=== PATIENT | female | born 1955 | race Caucasian/White ===

== ENCOUNTER 2017-06-09 22:43 | Inpatient (IN) | payer OTHER, SELFPAY | END 2017-06-12 11:30 | disposition home or self-care (01) | DRG 195 | PROVIDERS: Admitting Provider Emergency Medicine; Emergency Provider Emergency Medicine; Family Provider Emergency Medicine; Visit Provider Emergency Medicine | DX: J18.9 Pneumonia, unspecified organism (principal) | CPT/HCPCS: 36415; 71010; 80048; 80053; 81001; 83605; 85025; 87040; 87275; 87276; 96365; 96366; 96367; 99285; J0456 ==

== ENCOUNTER → 2018-06-15 12:41 | Outpatient (CLI) | payer OTHER, SELFPAY ==
--- NOTE | 2018-06-15 12:45 | XR_ITS ---
XR ribs BI min 4V w CXR1V HISTORY: Rib pain following injury ITS.REASON: rib pain s/p fall ORDERING PHYSICIAN: Sigifredo Alvarado PATIENT AGE: 62 years Comparison: 06/09/2017 FINDINGS: There are mildly displaced fractures involving the left fifth, sixth, and seventh ribs posterior laterally with a nondisplaced fracture involving the anterior aspect of the left sixth rib nondisplaced fracture involves the left eighth and ninth ribs posteriorly. No evidence of pneumothorax. IMPRESSION: Left fifth through ninth rib fractures with mild displacement of the fifth, sixth, and seventh rib fractures
== END ==
PROVIDERS: PCP Emergency Medicine; Visit Provider Nurse Practitioner Family
DX: R07.81 Pleurodynia (principal); Y92.009 Unspecified place in unspecified non-institutional (private) residence as the place of occurrence of the external cause; W19.XXXA Unspecified fall, initial encounter
CPT/HCPCS: 71111

== ENCOUNTER 2019-10-25 16:32 | Emergency (ER) | payer OTHER, SELFPAY ==
[2019-10-25 16:32] VITALS: BP 161/107; PULSE 101; RESP 20; TEMP 37; O2SAT 96; BMI 22.3
--- NOTE | 2019-10-25 16:43 | HMH.EDGENADL ---
ED Disposition Clinical Impression: Dizziness Hypertension Qualifiers: Hypertension type: unspecified Qualified Code(s): I10 - Essential (primary) hypertension Disposition: Home, Self-Care Condition on Discharge: Good Instructions: DI for Vertigo, DI for High Blood Pressure Prescriptions: Metoprolol Succinate [Metoprolol Succinate 25mg Tablet*] 25 mg PO DAILY #4 tab Prescription Printed Referrals: Abdelrahman Cabrera MD [Primary Care Provider] - 3 days - Critical Care Critical Care Time: No Attestation: On , the high probability of a clinically significant, sudden or life threatening deterioration of the following system(s) required my full and direct attention, intervention and personal management. The time I documented below is in addition to time spent performing reported procedures but includes the following listed in this critical care notation. Medical Decision Making - Medical Records Medical records reviewed: Yes: I reviewed the patient's medical records. - Yann Inquiry Pt receiving controlled substance: No Vital Signs: 10/25/19 16:32 10/25/19 16:58 Temperature 98.6 F Temperature Source Oral Pulse Rate [Right] 101 H 80 Respiratory Rate 20 Blood Pressure [Right Arm] 161/107 H 200/106 H Blood Pressure Mean [Right Arm] 125 137 Blood Pressure Source [Right Arm] Automatic Cuff Blood Pressure Position [Right Arm] Sitting 02 Sat by Pulse Oximetry 96 96 Oxygen Delivery Method Room Air - Lab Data Lab Results 10/25/19 17:05: Urine Color Yellow, Urine Appearance Clear, Urine pH 6.0, Ur Specific [place] 1.010, Urine Protein Negative, Urine Glucose (UA) Negative, Urine Ketones 1+, Urine Blood 2+, Urine Nitrate Negative, Urine Bilirubin Negative, Urine Urobilinogen 0.2, Ur Leukocyte Esterase Negative, Urine RBC 3-5, Urine WBC Occasional, Ur Squamous Epith Cells Occasional, Urine Bacteria Trace 10/25/19 17:05: WBC 8.9, RBC 4.74, Hgb 14.6, Hct 44.5, MCV 94.0, MCH 30.7, MCHC 32.7, RDW 13.5, Plt Count 340, MPV 7.5, Neut % (Auto) 70.1, Lymph % (Auto) 24.3, [place] % (Auto) 4.4, Eos % (Auto) 0.7, Baso % (Auto) 0.6, Neut # (Auto) 6.2, Lymph # (Auto) 2.2, [place] # (Auto) 0.4, Eos # (Auto) 0.1, Baso # (Auto) 0.1 10/25/19 17:05: Sodium 141, Potassium 3.7, Chloride 106, Carbon Dioxide 26, Anion Gap 12.7, BUN 12, Creatinine 0.70, Estimated Creat Clear 54, Estimated GFR 85, Est GFR ( Amer) 103, Glucose 95, Calcium 9.7, Troponin I < 0.01 10/25/19 17:05: Phosphorus 3.8, Magnesium 2.0 Result diagrams: 10/25/19 17:05 10/25/19 17:05 Orders (Tests/Meds): ORDERS Category Date Time Status CT angio head Stat Cat Scan 10/25/19 16:[address] angio neck Stat Cat Scan 10/25/19 16:[address] head/brain wo con Stat Cat Scan 10/25/19 16:57 Taken Troponin I Q3H Lab 10/25/19 20:00 Ordered Troponin I Q3H Lab 10/25/19 23:00 Ordered EKG Request [ECG Request by /Ignacio] Stat Y 10/25/19 16:59 Ordered - CT Data CT Scan: Head Time Received: 18:[address] Reviewed: Yes: I have viewed the radiologist's interpretation Findings Narrative: No acute CVA. - ECG Data Tracing #1 EKG shows a sinus rhythm with a rate of 76. No acute ST segment elevation or depression. No hyperacute T waves. +LVH. Normal intervals. EKG interpreted by me. Medical Decision Narrative: No significant metabolic derangement, no UTI. Troponin negative and EKG with no signs of acute ischemia. Blood pressure remains labile here. Patient has follow-up appointment with her primary care provider on Monday for evaluation. CT head shows no acute CVA, bleed. Patient refuses CTA head and neck. She understands that this means we would not have accurate evaluation of the vasculature of the brain and understands that we could not completely evaluate for possible posterior circulation compromise of the brain that would cause dizziness. She is alert and oriented x3 and has appropriate decision-making capacity. Blood pressure at dischar
--- NOTE | 2019-10-25 16:57 | CT_ITS ---
PROCEDURE: CT HEAD/BRAIN WO CON CLINICAL INDICATION: dizzy, HTN Headache, hypertension in been COMPARISON: No exams were available for comparison TECHNIQUE: Axial images obtained. All CT scans at the facility use one or more dose reduction, viz: automated exposure control, ma/kV adjustment per patient size (including targeted exams where dose is matched to indication, i.e. head), or iterative reconstruction technique. FINDINGS: No midline shift, mass effect, intracranial hemorrhage, hydrocephalus, or extra-axial fluid collection is evident. Low-density changes are present in the periventricular region consistent with ischemic gliotic change from microvascular disease. The calvarium has an unremarkable appearance. No mastoid effusion. No sinus air-fluid level. IMPRESSION: No acute intracranial finding Dictated by: Josiah Sanchez MD 10/26/2019 07:55 Electronically signed by Josiah Sanchez MD in [facility] 10/26/2019 07:55
[2019-10-25 16:58] VITALS: BP 200/106; PULSE 80; O2SAT 96
[2019-10-25 17:14] LABS: Basophils # 0.1 K/mm3 (0-0.2); Basophils % 0.6 % (0.1-2.0); Chloride 106 mmol/L (98-107); Eosinophils # 0.1 K/mm3 (0.0-0.4); Eosinophils % 0.7 % (0.1-12.0); Hematocrit 44.5 % (37.0-47.0); Hemoglobin 14.6 g/dL (12.2-16.2); Lymphocytes # 2.2 K/mm3 (0.7-4.5); Lymphocytes % 24.3 % (10-50); Mean Corpuscular HGB Conc 32.7 g/dL (31.8-35.4); Mean Corpuscular Hemoglobin 30.7 pg (27.0-31.2); Mean Platelet Volume 7.5 fl (7.4-10.4); Monocytes # 0.4 K/mm3 (0.1-1.0); Monocytes % 4.4 % (1.7-9.3); Neutrophils # 6.2 K/mm3 (1.8-7.8); Neutrophils % 70.1 % (37.0-80.0); Platelet Count 340 K/mm3 (142-424); Red Blood Count 4.74 M/mm3 (4.20-5.40); Red Cell Distribution Width 13.5 % (11.5-17.5); Sodium 141 mmol/L (136-145); White Blood Count 8.9 K/mm3 (4.8-10.8)
[2019-10-25 17:15] LABS: Potassium 3.7 mmoL/L (3.5-5.1)
[2019-10-25 17:16] LABS: Microscopic, Urine URINE MICROSCOPIC (MICROSCOPIC)
[2019-10-25 17:17] LABS: Blood Urea Nitrogen 12 mg/dl (7-17); Creatinine Clearance Estimated 54 mL/min (50-200); Estimated Glomerular Filt Rate 85 ml/min (>60); GFR (African American) 103 ML/MIN (>60)
[2019-10-25 17:18] LABS: Anion Gap 12.7 mEq/L (5-15); Appearance,Urine CLEAR (Clear); Bilirubin,Urine Negative (Negative); Blood, Urine 2+ (Negative); Calcium 9.7 mg/dl (8.4-10.2); Carbon Dioxide 26 mmol/L (22.0-30.0); Color,Urine YELLOW (Yellow); Glucose 95 mg/dl (74-100); Glucose,Urine (UA) Negative (Negative); Ketones,Urine 1+ (Negative); Leukocyte Esterase,Urine Negative (Negative); Nitrate,Urine Negative (Negative); Phosphorous 3.8 mg/dl (2.5-4.5); Protein,Urine Negative (Negative); Urobilinogen,Urine 0.2 EU/dl (0.2)
[2019-10-25 17:22] LABS: Bacteria,Urine Trace /lpf; Squamous Epithelial Cell,Urine Occasional #/hpf (0-5); WBC,Urine Occasional #/hpf (0-3)
[2019-10-25 17:31] LABS: Troponin I < 0.01 ng/ml (0.00-0.034)
--- NOTE | 2019-10-25 17:36 | PC.NURSE ---
Rad called to notify ED that pt does not want to receive contrast, pt educated on importance of receiving contrast and continued to refuse.
--- NOTE | 2019-10-25 18:01 | ECG_ITS ---
APPROVED REPORT Exam: Resting ECG HR:76 bpm ECG Measurements Heart Rate 76 AXES AR 162 P 51 QRSd 84 QRS 69 QT 398 T 60 QTc 447 <Conclusion> Normal sinus rhythm Left ventricular hypertrophy with repolarization abnormality Abnormal ECG Electronically signed by : Jon Denis, 10/26/2019 12:44:38
[2019-10-25 18:04] VITALS: BP 193/113; PULSE 80; O2SAT 98
[2019-10-25 18:53] VITALS: BP 200/60; PULSE 98; RESP 20; TEMP 36.8; O2SAT 98
== END 2019-10-25 18:54 | disposition home or self-care (01) ==
PROVIDERS: Emergency Provider Emergency Medicine; PCP Emergency Medicine
DX: R42 Dizziness and giddiness (principal); G35 Multiple sclerosis; I10 Essential (primary) hypertension; F17.210 Nicotine dependence, cigarettes, uncomplicated; Z88.0 Allergy status to penicillin; Z88.5 Allergy status to narcotic agent; Z90.79 Acquired absence of other genital organ(s)
CPT/HCPCS: 70450; 80048; 81001; 83735; 84100; 84484; 85025; 93005; 99283; 99284

== ENCOUNTER → 2019-10-31 14:05 | Outpatient (CLI) | payer OTHER, SELFPAY | PROVIDERS: PCP Emergency Medicine; Visit Provider Internal Medicine Cardiovascular Disease | DX: R00.2 Palpitations (principal); R42 Dizziness and giddiness; I10 Essential (primary) hypertension; F17.200 Nicotine dependence, unspecified, uncomplicated | CPT/HCPCS: 93270 ==

== ENCOUNTER → 2019-11-06 07:31 | Outpatient (CLI) | payer OTHER, SELFPAY ==
--- NOTE | 2019-11-06 | CA_ITS ---
APPROVED REPORT Exam: Pharmacologic Technologist: Josee Cisneros Ht: 5 ft 3 in Wt: 129 lbs BSA: 1.60 m2 HR: 61 bpm BP: 142/63 mmHg Indications: Palpitations, Dizziness Medical History Medications: Metoprolol,,,,, Tizanidine,,,,, Stress Test Details Test: LEXISCAN HR Resting HR: 66 bpm Max Heart Rate (APMHR): 158 bpm Max HR Achieved: 87 bpm Target HR (85% APMHR): 134 bpm % of APMHR: 55 Recovery HR: 80 bpm BP Resting BP: 142.0/63.0 mmHg Max BP: 142.0/63.0 mmHg Recovery BP: 114.0/53.0 mmHg ECG Clinical Exercise duration: 03:05 min Highest Stage Achieved: Stress ECG Conclusion Resting ECG: Sinus rhythm, abnormal EKG Lexiscan portion completed. Patient complained of shortness of breath during peak infusion. Symptoms: Shortness of breath during peak infusion. Resolved in recovery. No chest pain. Arrhythmias/Ectopy: No ectopy ST-T Changes: Less than 1.[address] depression. Conclusion: Images to follow. Test Summary REST . . . . . . . Resting REST 03:31 . . 66 . 142/ 63 . . Stage 1 . . . . . . . Myoview Injected Stage 1 01:00 . . 80 . . . . Stage 2 01:00 . . 83 . 116/ 59 . . Stage 3 01:00 . . 79 . 133/ 61 . . Stage 4 00:05 . . 79 . . . Stop exercise at 03:05 RECOVERY 01:00 . . 81 . 131/ 56 . . RECOVERY 02:00 . . 77 . 131/ 56 . . RECOVERY 03:00 . . 78 . 128/ 52 . . RECOVERY 04:00 . . 76 . 114/ 53 . . RECOVERY 05:00 . . 75 . 114/ 53 . . RECOVERY 05:01 . . 75 . 114/ 53 . . Electronically signed by : Venkata Bingham, 11/07/2019 10:00:19
--- NOTE | 2019-11-06 07:33 | NM_ITS ---
APPROVED REPORT Exam: Nuclear Stress Test Indication: Palpitations, Dizziness, HTN, Tobacco use Patient Location: Outpatient Stress Tech: Josee Cisneros NM Tech:Deann Andrew, ARRT, RT (R)(N) Ht: 5 ft 3 in Wt: 129 lbs Bra Size: B HR: 61 bpm BP: 142/63 mmHg BSA: 1.60 m2 BMI: 22.8 History: Palpitations, Dizziness, HTN, Tobacco use Procedure: Patient received a 0.4 mg of intravenous Lexiscan, resting heart rate 61 bpm, resting blood pressure 142/63 mmHg, with Lexiscan maximum heart rate achived was 83 bpm which is Less than 85 % of the maximum predicted heart rate and blood pressure was 116/59 mmHg. With Lexiscan, patient denied any complaint of chest pain. Electrocardiogram Resting electrocardiogram showed sinus rhythm nonspecific ST-T changes, with Lexiscan there is less than 1.[address] segment depression noted from the baseline EKG. The EKG portion of the Lexiscan Myoview is nondiagnostic. Cardiac Stress and Resting SPECT Images: Cardiac Stress and Resting SPECT images were obtained using technetium 99m Myoview 31.4 mCi stress and 10.04 mCi at rest. Gated SPECT with analysis of segmental wall motion and calculation of the ejection fraction also done. Cardiac stress and resting SPECT images show decreased tracer activity in the anteroseptal wall which improves on the resting images suggestive of reversible ischemia, computer derived ejection fraction is over 65% with no regional wall motion abnormality, right ventricle is normal size and contractility. Conclusion: 1. The EKG portion of the Lexiscan Myoview is nondiagnostic. 2. Scintigraphic evidence of mild reversible ischemia involving the anteroseptal wall, computer derived ejection fraction is over 65% with no regional wall motion abnormality, right ventricle is normal size and contractility. 3. Abnormal Lexiscan Myoview study. Electronically signed by : Venkata Bingham, 11/07/2019 10:03:51
--- NOTE | 2019-11-06 08:41 | CA_ITS ---
APPROVED REPORT Terrazzo Worker: CT Laterality: Bilateral Indications: dizziness, palpitations, MS Risk Factors Hypertension: Doppler Spectral Velocity Analysis ECA (R) 129.40/24.60 cm/s ECA (L) 99.40/17.10 cm/s dICA (R) 103.70/38.50 cm/s dICA (L) 91.90/40.00 cm/s Sena (R) 99.40/25.70 cm/s Sena (L) 100.50/37.40 cm/s pICA (R) 73.80/23.50 cm/s pICA (L) 90.90/32.10 cm/s dCCA (R) 97.70/30.80 cm/s dCCA (L) 93.00/31.00 cm/s pCCA (R) 110.50/30.80 cm/s pCCA (L) 114.40/36.40 cm/s Vert (R) 44.90/16.10 cm/s Vert (L) 85.50/25.70 cm/s ICA/CCA 1.10 ICA/CCA 1.10 Conclusion Duplex evaluation demonstrates stenosis of the right proximal internal carotid artery in the range of 20-49%, lower end of scale. Duplex evaluation demonstrates stenosis of the left proximal internal carotid artery in the range of 20-49%, lower end of scale. Duplex evaluation demonstrates antegrade flow of the bilateral Vertebral Arteries. Electronically signed by : Josiah Sanchez MD 11/06/2019 16:36:41
--- NOTE | 2019-11-06 08:41 | CA_ITS ---
APPROVED REPORT EXAM: Comprehensive 2D, Doppler, and color-flow Echocardiogram Director Educational Radio: Chayo Love CRT Ht: 5 ft 4 in Wt: 130lbs BSA: 1.63 BP: 166/76 mmHg Indications: smoker, palpitations, fatigue, dizziness, abn ekg 2D Dimensions LVOT 1.99 cm (M/F) 1.5-2.5 M-Mode Dimensions RVDd 2.96 cm (0.9-2.6) LVDd 3.89 cm (3.5-5.7) LVDs 2.47 cm (3.5-5.7) IVSd 1.13 cm (0.6-1.1) PWd 0.84 cm (0.6-1.1) EF (Teich) 66.90% FS 36.50% EDV (Teich) 65.50 mL ESV (Teich) 21.70 mL LV Diastology E/A Ratio 0.75 Mitral Valve MV A Velocity 82.00 (40-130 cm/s) Left Ventricle Left atrium is mildly enlarged, left ventricle is normal size, mild concentric left ventricular hypertrophy, visually estimated ejection fraction 55 to 60% with no regional wall motion abnormality, grade 1 diastolic dysfunction seen without tissue Doppler evidence of raise left atrial pressure. Right Ventricle Right atrium right ventricle mildly enlarged with normal contractility. Aortic Valve Aortic valve is minimally thickened and fibrosed, there is no aortic stenosis aortic insufficiency. Mitral Valve Mitral valve leaflets are minimally thickened, there is mild mitral regurgitation. Tricuspid Valve Tricuspid valve is grossly normal, there is mild tricuspid regurgitation, tricuspid regurgitation jet velocity is inadequate for calculation of the right ventricular systolic pressure. Pulmonic Valve Pulmonic valve is poorly visualized. Great Vessels Aortic root is normal size. Pericardium No significant pericardial effusion noted. Conclusion 1. Mild biatrial abdomen, normal left ventricular size, mild concentric left ventricular hypertrophy, visually estimated ejection fraction of 55 to 60% with no regional wall motion abnormality, grade 1 diastolic dysfunction seen without tissue Doppler evidence of raise left atrial pressure. 2. Mildly enlarged right ventricle with normal contractility. 3. Mild mitral and tricuspid regurgitation. 4. No significant pericardial effusion noted. Electronically signed by : Venkata Bingham, 11/07/2019 12:15:13
--- NOTE | 2019-11-06 09:16 | HMH.ITSHM ---
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 []TIZANIDINE METOPROLOL
== END ==
PROVIDERS: PCP Emergency Medicine; Visit Provider Internal Medicine Cardiovascular Disease
DX: R00.2 Palpitations (principal); R42 Dizziness and giddiness; I10 Essential (primary) hypertension; M54.2 Cervicalgia; F17.200 Nicotine dependence, unspecified, uncomplicated
CPT/HCPCS: 78452; 93017; 93306; 93880; A9502; J2785

== ENCOUNTER 2019-12-02 07:59 | Day surgery (SDC) | payer OTHER, SELFPAY ==
[2019-12-02] VITALS (12 sets, daily range): BP systolic 116–175; BP diastolic 61–89; PULSE 50–67; RESP 16–18; TEMP 36.6; O2SAT 96–98; BMI 22.3
[2019-12-02 08:50] LABS: Basophils # 0.1 K/mm3 (0-0.2); Eosinophils # 0.4 K/mm3 (0.0-0.4); Eosinophils % 3.7 % (0.1-12.0); Hematocrit 43.1 % (37.0-47.0); Hemoglobin 14.3 g/dL (12.2-16.2); Lymphocytes # 3.4 K/mm3 (0.7-4.5); Lymphocytes % 33.1 % (10-50); Mean Corpuscular HGB Conc 33.2 g/dL (31.8-35.4); Mean Corpuscular Hemoglobin 32.3 pg (27.0-31.2); Mean Corpuscular Volume 97.2 fl (81-99); Mean Platelet Volume 7.6 fl (7.4-10.4); Monocytes # 0.5 K/mm3 (0.1-1.0); Monocytes % 5.3 % (1.7-9.3); Neutrophils # 5.9 K/mm3 (1.8-7.8); Neutrophils % 56.9 % (37.0-80.0); Platelet Count 304 K/mm3 (142-424); Red Blood Count 4.44 M/mm3 (4.20-5.40); Red Cell Distribution Width 13.9 % (11.5-17.5); White Blood Count 10.3 K/mm3 (4.8-10.8)
[2019-12-02 08:54] LABS: Chloride 110 mmol/L (98-107); Potassium 4.9 mmoL/L (3.5-5.1); Sodium 138 mmol/L (136-145)
[2019-12-02 08:57] LABS: Anion Gap 10.9 mEq/L (5-15); Blood Urea Nitrogen 14 mg/dl (7-17); Carbon Dioxide 22 mmol/L (22.0-30.0); Creatinine Clearance Estimated 54 mL/min (50-200); Estimated Glomerular Filt Rate 73 ml/min (>60); GFR (African American) 88 ML/MIN (>60); Glucose 108 mg/dl (74-100)
--- NOTE | 2019-12-02 09:00 | IR_ITS ---
APPROVED REPORT Patient Location: Outpatient Kitchen Supervisor: MIRIAN Gallegos RT (R) PROCEDURES Left heart catheterization Left ventriculogram Selective coronary angiogram INDICATION High risk abnormal Myoview, Angina pectoris Informed consent was obtained prior to the procedure. COMPLICATIONS none Estimated Blood Loss: less than 10 mls TECHNIQUE One percent lidocaine used to anesthetize the right anterior aspect of the wrist. The right radial artery was accessed via the Seldinger technique. A 6 [place] sheath was placed in the right radial artery. 2.5 mg of verapamil, 800 mcg of nitroglycerin, 1mg Lidocaine and 5000 U Heparin were given through the arterial sheath. The trap catheter was also used to perform left heart catheterization, left ventriculogram and selective coronary angiogram. At the end of the procedure the sheath was removed good hemostasis was achieved using Traclet band, patient was transferred to the postop holding area in stable condition. ANGIOGRAPHIC RESULTS The left main artery Normal The left anterior descending artery Normal The circumflex artery Dominant normal The right coronary artery Normal The PA ventriculogram reveals Normal 65% The left ventricular end-diastolic pressure 10 mmHg IMPRESSION Normal coronary arteries Normal ejection fraction Normal left ventricular end-diastolic pressure PLAN 1. Medical management Electronically signed by : Skip Wei, 12/02/2019 11:09:10
== END 2019-12-02 14:09 | disposition home or self-care (01) ==
PROVIDERS: PCP Emergency Medicine; Visit Provider Internal Medicine
DX: I20.8 Other forms of angina pectoris (principal); I10 Essential (primary) hypertension; I65.23 Occlusion and stenosis of bilateral carotid arteries; R94.39 Abnormal result of other cardiovascular function study; Z72.0 Tobacco use; Z79.82 Long term (current) use of aspirin; Z79.899 Other long term (current) drug therapy; Z88.0 Allergy status to penicillin; Z88.5 Allergy status to narcotic agent; Z88.8 Allergy status to other drugs, medicaments and biological substances
CPT/HCPCS: 80048; 85025; 93458; 99152; C1725; C1769; J1644; Q9967

== ENCOUNTER → 2021-05-03 13:04 | Outpatient (CLI) | payer MEDICARE, OTHER, SELFPAY | PROVIDERS: Visit Provider Ophthalmology | DX: Z01.812 Encounter for preprocedural laboratory examination (principal); Z11.52 Encounter for screening for COVID-19 | CPT/HCPCS: C9803; U0003; U0005 ==

== ENCOUNTER 2021-05-04 09:07 | Day surgery (SDC) | payer MEDICARE, OTHER, SELFPAY ==
[2021-05-04] VITALS (7 sets, daily range): BP systolic 148–175; BP diastolic 59–84; PULSE 66–80; RESP 16–18; TEMP 36.3–36.7; O2SAT 98–100; BMI 23.0
== END 2021-05-04 12:25 | disposition home or self-care (01) ==
LOC: OR 09:12
PROVIDERS: PCP Emergency Medicine; Visit Provider Ophthalmology
DX: H25.813 Combined forms of age-related cataract, bilateral (principal); H53.149 Visual discomfort, unspecified; H02.831 Dermatochalasis of right upper eyelid; H02.834 Dermatochalasis of left upper eyelid; Z72.0 Tobacco use; Z88.0 Allergy status to penicillin; Z88.6 Allergy status to analgesic agent; Z88.8 Allergy status to other drugs, medicaments and biological substances
CPT/HCPCS: 66984; V2632

== ENCOUNTER → 2021-06-05 11:57 | Outpatient (CLI) | payer MEDICARE, OTHER, SELFPAY | PROVIDERS: Visit Provider Ophthalmology | DX: Z01.812 Encounter for preprocedural laboratory examination (principal); Z11.52 Encounter for screening for COVID-19 | CPT/HCPCS: C9803; U0003; U0005 ==

== ENCOUNTER → 2021-07-03 11:07 | Outpatient (CLI) | payer MEDICARE, OTHER, SELFPAY | PROVIDERS: Visit Provider Ophthalmology | DX: Z20.822 Contact with and (suspected) exposure to COVID-19 (principal) | CPT/HCPCS: C9803; U0003; U0005 ==

== ENCOUNTER 2021-07-06 08:08 | Day surgery (SDC) | payer MEDICARE, OTHER, SELFPAY ==
[2021-07-06] VITALS (8 sets, daily range): BP systolic 121–158; BP diastolic 67–81; PULSE 66–78; RESP 16–18; TEMP 36.3–36.7; O2SAT 97–100; BMI 22.3
== END 2021-07-06 10:51 | disposition home or self-care (01) ==
LOC: OR 08:10
PROVIDERS: PCP Emergency Medicine; Visit Provider Ophthalmology
DX: H25.813 Combined forms of age-related cataract, bilateral (principal); H53.149 Visual discomfort, unspecified; H02.831 Dermatochalasis of right upper eyelid; H02.834 Dermatochalasis of left upper eyelid; I10 Essential (primary) hypertension; Z88.0 Allergy status to penicillin; Z88.6 Allergy status to analgesic agent; Z88.8 Allergy status to other drugs, medicaments and biological substances
CPT/HCPCS: 66984; V2632

== ENCOUNTER 2021-09-07 09:58 | Outpatient (RCR) | payer MEDICARE, OTHER, SELFPAY | END 2021-09-07 10:28 | disposition home or self-care (01) | LOC: PT 09:58 | PROVIDERS: PCP Emergency Medicine; Visit Provider Emergency Medicine | DX: G35 Multiple sclerosis (principal) | CPT/HCPCS: 97535; 97542 ==

== ENCOUNTER 2021-11-02 10:00 | Outpatient (RCR) | payer MEDICARE, OTHER, SELFPAY ==
--- NOTE | 2021-09-15 10:45 | HMH.PTOPEV ---
PT Outpatient Evaluation Rehab PT Outpatient Evaluation Start: 09/15/21 10:06 Freq: Status: Active Protocol: Document 09/15/21 10:06 YOKO (Rec: 09/15/21 10:45 YOKO [id number]) Electronically Signed By Óscar Wright, RUCHI 09/15/21 10:06 Outpatient Therapy Subjective History Subjective History This is the initial Physical Therapy evaluation for Hailey Payan. Pt is a 66 y/o female who was diagnosed w/ chronic progressive multiple sclerosis in 1994. Pt has worked to maintain independence since then. Pt finally began using wheelchair in 2014. Pt lives alone and does IADL's independently from chair, but is getting weaker and losing independence. Pt reports she is unable to transfer on her own now and if she falls she can not get back into wheelchair. Pt reports recent falls in the last several months where her right leg gives out . Pt has ~20 degree R knee flexion contracture. Chief Complaint Weakness,Other Current Functional Limitations Standing,Walking Hip/Knee Eval Assistive Device Assistive Devices Wheelchair MMT left Hip Strength Reason Not Measured WFL Knee Strength Reason Not Measured WFL right Hip Flexion Strength Grade 4- Good- Hip External Rotation Strength Grade 4- Good- Hip Internal Rotation Strength Grade 4- Good- Knee Extension Strength Grade 4- Good- Knee Flexion Strength Grade 4- Good- ROM Knee Extension Active Range of Motion ( -20 degrees) Knee ROM Limitations Contracture Ankle/Foot Eval MMT left Ankle Dorsiflexion Strength Grade 5 Normal Ankle Plantarflexion Strength Grade 4 Good right Ankle Dorsiflexion Strength Grade 4- Good- Ankle Plantarflexion Strength Grade 3- Fair- Balance Eval Prior Functional Limitations Prior Functional [place] Level modified independent Current Functional Limitations Comment max A for sit/st transfer and stand/pivot transfer Hx of Falls Hx Falls Yes LE ROM Ankle/Foot ROM Limitations Soft Tissue Tightness Outpatient Therapy Assessment Impairments Problems/Impairmments Impaired Range of Motion, Impaired Strengt
== END 2021-11-02 10:05 | disposition home or self-care (01) ==
LOC: PT 10:00
PROVIDERS: PCP Emergency Medicine; Visit Provider Nurse Practitioner Family
DX: G35 Multiple sclerosis (principal); Z76.89 Persons encountering health services in other specified circumstances
CPT/HCPCS: 97110; 97113; 97140; 97163; 97164; 97535

== ENCOUNTER → 2022-02-08 06:57 | Outpatient (CLI) | payer MEDICARE, OTHER, SELFPAY ==
[2022-02-08 19:09] LABS: Basophils # 0.1 K/mm3 (0-0.2); Basophils % 0.9 % (0.1-2.0); Eosinophils # 0.1 K/mm3 (0.0-0.4); Eosinophils % 0.7 % (0.1-12.0); Hematocrit 44.6 % (37.0-47.0); Hemoglobin 14.3 g/dL (12.2-16.2); Lymphocytes # 2.8 K/mm3 (0.7-4.5); Lymphocytes % 23.8 % (10-50); Mean Corpuscular Hemoglobin 32.1 pg (27.0-31.2); Mean Corpuscular Volume 100.4 fl (81-99); Mean Platelet Volume 8.7 fl (7.4-10.4); Monocytes # 0.6 K/mm3 (0.1-1.0); Monocytes % 4.7 % (1.7-9.3); Neutrophils # 8.3 K/mm3 (1.8-7.8); Neutrophils % 69.9 % (37.0-80.0); Platelet Count 377 K/mm3 (142-424); Red Blood Count 4.44 M/mm3 (4.20-5.40); Red Cell Distribution Width 14.2 % (11.5-17.5); White Blood Count 11.9 K/mm3 (4.8-10.8)
[2022-02-08 19:25] LABS: Alanine Aminotransferase 13 U/L (12-78); Albumin/Globulin Ratio 1.5 (1.1-1.8); Alkaline Phosphatase 85 U/L (38-126); Aspartate Amino Transferase 28 U/L (14-36); Blood Urea Nitrogen 16 mg/dl (7-17); Calcium 9.5 mg/dl (8.4-10.2); Carbon Dioxide 27 mmol/L (22.0-30.0); Chloride 108 mmol/L (98-107); Cholesterol 242 mg/dl (140-200); Estimated Glomerular Filt Rate 84 ml/min (>60); GFR (African American) 102 ML/MIN (>60); Globulin 2.6 g/dL (1.3-3.2); Glucose 85 mg/dl (74-100); HDL Cholesterol 80 mg/dl (40-60); Sodium 140 mmol/L (136-145); Total Protein,Serum 6.6 g/dl (6.3-8.2); Triglycerides 140 mg/dl (30-150); VLDL Cholesterol 28 mg/dL (0-40)
[2022-02-08 19:26] LABS: Bilirubin,Total < 0.1 mg/dl (0.2-1.3)
[2022-02-08 19:44] LABS: 25-OH Vitamin D, Total 28.1 ng/mL (30-100)
[2022-02-08 19:56] LABS: Thyroid Stimulating Hormone 1.01 uIU/mL (0.465-4.68)
[2022-02-08 20:15] LABS: Vitamin B12 467 pg/mL (239-931)
[2022-02-08 20:41] LABS: Iron 71 ug/dL (37-170)
[2022-02-08 20:50] LABS: Total Iron Binding Capacity 333 ug/dL (265-497)
[2022-02-10 08:47] LABS: Direct LDL Cholesterol 126 mg/dL (100-129)
== END ==
PROVIDERS: PCP Family Medicine; Visit Provider Family Medicine
DX: G35 Multiple sclerosis (principal); R53.83 Other fatigue; E55.9 Vitamin D deficiency, unspecified; I10 Essential (primary) hypertension; R79.0 Abnormal level of blood mineral
CPT/HCPCS: 80053; 80061; 82306; 82607; 82728; 83540; 83550; 84443; 85025

== ENCOUNTER 2022-11-27 10:52 | Emergency (ER) | payer MEDICARE, OTHER, SELFPAY ==
[2022-11-27 10:55] VITALS: BP 173/105; PULSE 79; RESP 16; TEMP 36.4; O2SAT 96; BMI 22.1
[2022-11-27 11:00] VITALS: BP 185/104; PULSE 76; RESP 18; O2SAT 96
[2022-11-27 11:14] LABS: Basophils # 0.1 K/mm3 (0-0.2); Basophils % 0.6 % (0.1-2.0); Chloride 104 mmol/L (98-107); Eosinophils # 0.1 K/mm3 (0.0-0.4); Eosinophils % 0.7 % (0.1-12.0); Hematocrit 43.6 % (37.0-47.0); Hemoglobin 14.2 g/dL (12.2-16.2); Lymphocytes # 1.9 K/mm3 (0.7-4.5); Lymphocytes % 20.4 % (10-50); Mean Corpuscular HGB Conc 32.6 g/dL (31.8-35.4); Mean Corpuscular Hemoglobin 31.5 pg (27.0-31.2); Mean Corpuscular Volume 96.5 fl (81-99); Mean Platelet Volume 8.5 fl (7.4-10.4); Monocytes # 0.4 K/mm3 (0.1-1.0); Monocytes % 4.2 % (1.7-9.3); Neutrophils # 6.9 K/mm3 (1.8-7.8); Neutrophils % 74.2 % (37.0-80.0); Platelet Count 359 K/mm3 (142-424); Red Blood Count 4.52 M/mm3 (4.20-5.40); White Blood Count 9.3 K/mm3 (4.8-10.8)
[2022-11-27 11:15] LABS: Sodium 142 mmol/L (136-145)
[2022-11-27 11:18] LABS: Blood Urea Nitrogen 24 mg/dl (7-17); Calcium 9.5 mg/dl (8.4-10.2); Carbon Dioxide 27 mmol/L (22.0-30.0); Creatinine Clearance Estimated 50 mL/min (50-200); Estimated Glomerular Filt Rate 84 ml/min (>60); GFR (African American) 102 ML/MIN (>60); Glucose 105 mg/dl (74-100)
--- NOTE | 2022-11-27 11:20 | PC.NURSE ---
ER MD suazo at
--- NOTE | 2022-11-27 11:22 | PC.NURSE ---
Bladder scan performed 57 mL
[2022-11-27 11:30] VITALS: BP 160/94; PULSE 90; RESP 18; O2SAT 97
--- NOTE | 2022-11-27 11:41 | HMH.EDWEAK ---
Discharge Plan Disposition Patient Disposition: Home, Self-Care Chief Complaint: Weakness Prescriptions Prescriptions: No Action No Known Home Medications Referrals Follow up/Referrals: Abdelrahman Cabrera MD [Primary Care Provider] - See instructions Clinical Impressions Clinical Impression: Multiple sclerosis, Dizziness, Weakness Instructions Patient Instructions: DI for Multiple Sclerosis Discharge ED Provider: Deborah (ED)Abdelrahman Weakness HPI General Chief complaint: Weakness Stated complaint: weakness Time Seen by Provider: 11/27/22 11:41 Mode of Arrival: EMS Source of Information: Patient, Relative, EMS and Medical Record Limitations: No Limitations Description of Symptoms (Recalled from ER Triage Doc. by RN): Presents via EMS from home d/t generalized weakness x 1 wk. Denies any other Sx. Hx of MS; reports well controlled without treatment. History of Present Illness HPI Narrative: pt with long hx of ms and over the last week has increased weakness more in lower ext - no fever/rash or sig trauma - fell transfering a couple of days ago but denied head or neck or spine injury - no pain and weakness prior to that - pt transferes but does not ambulate - no hx of htn and reports bp was ok at home Complaint: generalized weakness Onset (ago): day(s) Duration: intermittent Location: generalized Migration: none Severity: moderate Associated symptoms: denies other symptoms Related Data Home Medications Medication Instructions Recorded Confirmed No Known Home Medications 05/04/21 02/08/22 Allergies Allergy/AdvReac Type Severity Reaction Status Date / Time codeine [CODEINE] Allergy Mild Verified 02/08/22 16:17 hydrochlorothiazide Allergy Mild Verified 02/08/22 16:17 losartan Allergy Mild Verified 02/08/22 16:17 Penicillins [PENICILLINS] Allergy Mild Verified 02/08/22 16:17 rosuvastatin [From Crestor] Allergy Mild Verified 02/08/22 16:17 [facility] Disclaimer: The information contained in this section may have been updated after the patient was seen, as this information can be updated by other users. Medical History Abnormal cardiovascular stress test Atypical angina Carotid artery stenosis Dyspnea Tobacco user Social History Smoking Status: Current every day smoker tobacco type: cigarettes packs per day: 1 second hand exposure: No alcohol intake: never counseling provided: none substance use type: denies use current occupational status: disabled Travel in the last 8 weeks: None household members: spouse housing: house current occupational exposures/hazards: No caffeine: Yes ROS Obtained: Yes All systems reviewed & no additional complaints except as documented Physical Exam General General appearance: alert and in no apparent distress Head Head exam: normocephalic Eye Eye exam: Present PERRL and EOMI; Absent scleral icterus ENT ENT exam: Present mucous membranes moist Neck Neck exam: Present trachea midline; Absent tenderness Respiratory Respiratory exam: Present normal lung sounds bilaterally; Absent respiratory distress Cardiovascular Cardiovascular exam: Present regular rate and systolic murmur Abdominal Exam Abdominal exam: Present soft; Absent tenderness Extremities Exam Extremities exam: Present other (chronic changes lower ext -strength ok - no def foot drop) Back Exam Back exam: Absent tenderness Neurological Exam Neurological exam: Present alert, oriented X3, CN II-XII intact and other (gcs=15); Absent motor sensory deficit Psychiatric Psychiatric exam: Present normal affect Skin Skin exam: Absent rash Medical Decision Making Medical Records Medical records reviewed: Yes I reviewed the patient's medical records. Yann Inquiry Pt receiving controlled substance: No Vital Signs: 11/27/22 10:55 11/27/22 11:00 11/27/22 11:30 Temperature 97.6 F Temperature Source Oral Pulse Rate 76 90 Pulse Rate [Right]
--- NOTE | 2022-11-27 11:49 | PC.NURSE ---
Urine specimen collected. Pt assisted back in stretcher, (pt preference), during fluid initiation/infusion. No further complaints at this time.
[2022-11-27 11:52] LABS: Appearance,Urine SL CLOUDY (Clear); Bilirubin,Urine Negative (Negative); Blood, Urine TRACE-I (Negative); Color,Urine YELLOW (Yellow); Glucose,Urine (UA) Negative (Negative); Ketones,Urine Negative (Negative); Leukocyte Esterase,Urine TRACE (Negative); Microscopic, Urine URINE MICROSCOPIC (MICROSCOPIC); Nitrate,Urine Negative (Negative); Protein,Urine TRACE (Negative); Specific Gravity, Urine 1.025 (1.005-1.030); Urobilinogen,Urine 0.2 EU/dl (0.2)
[2022-11-27 12:00] VITALS: BP 175/97; PULSE 71; RESP 18; O2SAT 96
[2022-11-27 12:06] LABS: Bacteria,Urine 2+ /lpf
--- NOTE | 2022-11-27 12:15 | PC.NURSE ---
pt given warm blanket
[2022-11-27 12:30] VITALS: BP 156/89; PULSE 70; RESP 18; O2SAT 97
[2022-11-27 12:46] LABS: Alanine Aminotransferase 25 U/L (12-78); Albumin Level 4.3 g/dl (3.5-5.0); Alkaline Phosphatase 65 U/L (38-126); Aspartate Amino Transferase 39 U/L (14-36); Bilirubin,Indirect 0.3 mg/dL (0.0-0.9); Bilirubin,Total 0.3 mg/dl (0.2-1.3); Bilirubin,Unconjugated 0.4 mg/dL (0.0-1.1); Total Protein,Serum 7.3 g/dl (6.3-8.2)
[2022-11-27 12:51] LABS: C-Reactive Protein 2.5 mg/L (0-4)
--- NOTE | 2022-11-27 12:58 | PC.NURSE ---
rounded on pt at this time, states no needs, family at BS
--- NOTE | 2022-11-27 13:04 | PC.NURSE ---
LAUREN ADRIAN at
[2022-11-27 13:05] LABS: 25-OH Vitamin D, Total 25.7 ng/mL (30-100)
[2022-11-27 13:06] LABS: T4 (Thyroxine) 10.9 ug/dl (5.53-11.0)
[2022-11-27 13:07] LABS: Erythrocyte Sedimentation Rate 19 mm/hr (0-30)
[2022-11-27 13:11] VITALS: BP 156/89; PULSE 70; RESP 18; TEMP 36.4; O2SAT 97
[2022-11-27 13:19] LABS: Thyroid Stimulating Hormone 1.52 uIU/mL (0.465-4.68)
[2022-11-27 14:04] LABS: Vitamin B12 367 pg/mL (239-931)
== END 2022-11-27 13:13 | disposition home or self-care (01) ==
PROVIDERS: Emergency Provider Emergency Medicine; PCP Emergency Medicine
DX: G35 Multiple sclerosis (principal); R42 Dizziness and giddiness; R53.1 Weakness; I20.9 Angina pectoris, unspecified; I65.29 Occlusion and stenosis of unspecified carotid artery; F17.210 Nicotine dependence, cigarettes, uncomplicated
CPT/HCPCS: 80048; 80076; 81001; 82306; 82607; 84436; 84443; 85025; 85651; 86140; 87086; 96360; 99284; 99285

== ENCOUNTER 2023-08-07 22:42 | Emergency (ER) | payer MEDICARE, OTHER, SELFPAY ==
[2023-08-07 22:42] VITALS: BP 207/113; PULSE 92; RESP 18; TEMP 36.8; O2SAT 98; BMI 22.1
--- NOTE | 2023-08-07 22:53 | XR_ITS ---
PROCEDURE INFORMATION: Exam: XR Right Shoulder Exam date and time: 08/07/2023 11:18 PM Age: 68 years old Clinical indication: Pain; Shoulder; Right; Additional info: Fall TECHNIQUE: Imaging protocol: Radiologic exam of the right shoulder. Views: 2 or more views. Total images: 3 COMPARISON: CR [id number] XR ribs BI min 4V w CXR1V 06/15/2018 12:54 PM FINDINGS: Bones/joints: Osteopenia. No acute fracture, joint dislocation, or AC joint separation. Minor enthesophyte at the greater tuberosity. No significant degenerative arthropathy. No concerning bone lesions or calcifications. Soft tissues: Unremarkable soft tissues. IMPRESSION: Negative right shoulder.
--- NOTE | 2023-08-07 22:53 | XR_ITS ---
PROCEDURE INFORMATION: Exam: XR Left Shoulder Exam date and time: 08/07/2023 11:18 PM Age: 68 years old Clinical indication: Pain; Shoulder; Left; Additional info: Fall TECHNIQUE: Imaging protocol: Radiologic exam of the left shoulder. Views: 2 or more views. Total images: 6 COMPARISON: CR [id number] XR ribs BI min 4V w CXR1V 06/15/2018 12:54 PM FINDINGS: Bones/joints: Osteopenia. No acute fracture, joint dislocation, or AC joint separation. Subacromial distance is preserved. No concerning bone lesions or calcifications. No significant degenerative arthropathy. Multiple remote left rib deformities. Lungs: 3 cm left apical lung mass. Soft tissues: Unremarkable soft tissues. IMPRESSION: 1. Negative left shoulder. 2. 3 cm left apical lung mass. Recommend follow-up nonemergent chest CT. 3. Multiple remote left rib deformities.
--- NOTE | 2023-08-07 22:55 | ED_ITS ---
Discharge Plan Disposition Patient Disposition: Home, Self-Care Prescriptions Prescriptions: No Action No Known Home Medications Referrals Follow up/Referrals: tJ Mckenzie DO [Primary Care Provider] - See instructions Skip Velazquez DO [Staff Physician] - See instructions Activity Restrictions/Add. Instructions Additional Instructions/Restrictions: At this time it was felt you are safe to be discharged home. If new or worsening symptoms please do not hesitate to return the emergency department. Please call and schedule an appointment with Dr. Velazquez as soon as you are able. Clinical Impressions Clinical Impression: Fall, Weakness, Acute shoulder pain, Mass of left lung Discharge ED Provider: Augustine Pulido General Adult HPI <Augustine Pulido MD - Last Filed: 08/07/23 23:01> General Chief complaint: Fall Stated complaint: fall w/shoulder pain Time Seen by Provider: 08/07/23 22:44 History of Present Illness HPI narrative: Patient is a 68-year-old female with past medical history of chronic progressive MS not currently on Biolog[employer] who presents to the emergency department for evaluation of traumatic injury sustained in a fall. Patient states that she was transferring from her wheelchair which she was in her baseline to toilet when lj clayton suffered a ground-level fall onto her right shoulder, she subsequently attempted to get back into the wheelchair falling onto her left shoulder, she did not strike her head, no loss of consciousness, no blood thinners. She eventually called 911 approximately an hour later after crawling to the phone presents here for continued evaluation. Besides shoulder pain she denies other acute symptoms. Chronically she has worsening lower extremity weakness and wishes to seek primary care. Related Data Home Medications Medication Instructions Recorded Confirmed No Known Home Medications 05/04/21 02/08/22 Allergies Allergy/AdvReac Type Severity Reaction Status Date / Time codeine [CODEINE] Allergy Mild Verified 02/08/22 16:17 hydrochlorothiazide Allergy Mild Verified 02/08/22 16:17 losartan Allergy Mild Verified 02/08/22 16:17 Penicillins [PENICILLINS] Allergy Mild Verified 02/08/22 16:17 rosuvastatin [From Crestor] Allergy Mild Verified 02/08/22 16:17 PFSH <Augustine Pulido MD - Last Filed: 08/07/23 23:01> [facility] Disclaimer: The information contained in this section may have been updated after the patient was seen, as this information can be updated by other users. Medical History Abnormal cardiovascular stress test Atypical angina Carotid artery stenosis Dyspnea Tobacco user Social History Smoking Status: Current every day smoker tobacco type: cigarettes packs per day: 1 second hand exposure: No alcohol intake: never counseling provided: none substance use type: denies use current occupational status: disabled Travel in the last 8 weeks: None household members: spouse housing: house current occupational exposures/hazards: No caffeine: Yes <Augustine Pulido MD - Last Filed: 08/07/23 23:01> ROS Obtained: Yes Systems reviewed as appropriate & no additional complaints except as documented Physical Exam <Augustine Pulido MD - Last Filed: 08/07/23 23:01> General General appearance: alert and in no apparent distress Head Head exam: atraumatic and normocephalic Eye Eye exam: Present PERRL and EOMI ENT ENT exam: Present mucous membranes moist Neck Neck exam: Present normal inspection Chest Chest inspection: Present normal inspection and symmetric chest wall rise Respiratory Respiratory exam: Present normal lung sounds bilaterally; Absent respiratory distress Cardiovascular Cardiovascular exam: Present regular rate and normal rhythm Abdominal Exam Abdominal exam: Present soft; Absent tenderness Extremities Exam Extremities exam: Present normal inspection and other (Preserved active range of motion of the shoulder with some pain over full abduction bilaterally) Neurological Exam Neurological exam: Present alert Psychiatric Psychiatric exam: Present normal affect Skin Skin exam: Present warm and dry Medical Decision Making <Augustine Pulido MD - Last Filed: 08/07/23 23:01> Yann Inquiry Pt receiving controlled substance: No Vital Signs: 08/07/23 22:42 08/07/23 23:00 08/07/23 23:30 Temperature 98.3 F Temperature Source Oral Pulse Rate 87 82 Pulse Rate [Left] 92 H Respiratory Rate 18 18 20 Blood Pressure 198/114 H 219/103 H Blood Pressure [Right Arm] 207/113 H Blood Pressure Mean 141 145 Blood Pressure Mean [Right Arm] 144 Blood Pressure Source Blood Pressure Source [Right Arm] Automatic Cuff Blood Pressure Position Blood Pressure Position [Right Arm] Sitting 02 Sat by Pulse Oximetry 98 96 95 Oxygen Delivery Method Room Air Room Air Room Air 08/08/23 00:05 Temperature 98.3 F Temperature Source Oral Pulse Rate 82 Pulse Rate [Left] Respiratory Rate 20 Blood Pressure 198/103 H Blood Pressure [Right Arm] Blood Pressure Mean Blood Pressure Mean [Right Arm] Blood Pressure Source Automatic Cuff Blood Pressure Source [Right Arm] Blood Pressure Position Sitting Blood Pressure Position [Right Arm] 02 Sat by Pulse Oximetry Oxygen Delivery Method Room Air Lab Data Lab Results 08/07/23 23:00: WBC 10.9 H, RBC 4.46, Hgb 14.0, Hct 42.2, MCV 94.6, MCH 31.3 H, MCHC 33.1, RDW 13.7, Plt Count 318, MPV 7.6, Neut % (Auto) 69.2, Lymph % (Auto) 24.7, Luce % (Auto) 4.1, Eos % (Auto) 1.6, Baso % (Auto) 0.4, Neut # (Auto) 7.6, Lymph # (Auto) 2.7, Luce # (Auto) 0.5, Eos # (Auto) 0.2, Baso # (Auto) 0.1, Sodium 142, Potassium 3.7, Chloride 109 H, Carbon Dioxide 30, Anion Gap 6.7, BUN 17, Creatinine 0.70, Estimated Creat Clear 50, Estimated GFR 84, Est GFR ( Amer) 101, Glucose 108 H, Calcium 9.2, Magnesium 2.1, Total Bilirubin 0.3, AST 33, ALT 21, Alkaline Phosphatase 70, Total Protein 7.0, Albumin 4.0, Globulin 3.0, Albumin/Globulin Ratio 1.3 08/07/23 23:00 08/07/23 23:00 Orders (Tests/Meds): ORDERS Category Date Time Status Shoulder XR left minimum 2 views [XR shoulder LT min 2V Exams 08/07/23 22:53 Completed ] Stat Shoulder XR right miminum 2 views [XR shoulder RT min Exams 08/07/23 22:53 Completed 2V] Stat CBC w/Auto Diff [Complete Blood Count Auto Diff] Stat Lab 08/07/23 23:00 Completed CMP [Comprehensive Metabolic Panel] Stat Lab 08/07/23 23:00 Completed MG [Magnesium] Stat Lab 08/07/23 23:00 Completed Medical Decision Narrative: In summary patient is a 68-year-old female with past medical history described below presents emergency department for evaluation of traumatic injury sustained in a fall in the setting of chronic progressive MS. Patient is hemodynamically stable nontoxic-appearing upon arrival, afebrile. Patient has preserved range of motion with pain in her shoulders. Differential includes fracture, musculoskeletal strain, among others. With respect to trauma standpoint workup will be conducted with plain films. CT imaging of the head and neck was considered however given no reported trauma and no findings on physical exam will be deferred. Patient hematologic labs will be obtained for her chronic weakness which I suspect is her chronic progressive MS, she does report a history of vitamin D deficiency and wishes to have that lab sent off however that is unable to be conducted in the emergency department she will be referred to Dr. Velazquez to establish care from that standpoint. Plain films and repeat evaluation as well as capability to self transfer was pending at time of transfer of care to the oncoming physician, Dr. Mcgraw. <Derick Mcgraw MD - Last Filed: 08/08/23 00:16> Vital Signs: 08/07/23 22:42 08/07/23 23:00 08/07/23 23:30 Temperature 98.3 F Temperature Source Oral Pulse Rate 87 82 Pulse Rate [Left] 92 H Respiratory Rate 18 18 20 Blood Pressure 198/114 H 219/103 H Blood Pressure [Right Arm] 207/113 H Blood Pressure Mean 141 145 Blood Pressure Mean [Right Arm] 144 Blood Pressure Source Blood Pressure Source [Right Arm] Automatic Cuff Blood Pressure Position Blood Pressure Position [Right Arm] Sitting 02 Sat by Pulse Oximetry 98 96 95 Oxygen Delivery Method Room Air Room Air Room Air 08/08/23 00:05 Temperature 98.3 F Temperature Source Oral Pulse Rate 82 Pulse Rate [Left] Respiratory Rate 20 Blood Pressure 198/103 H Blood Pressure [Right Arm] Blood Pressure Mean Blood Pressure Mean [Right Arm] Blood Pressure Source Automatic Cuff Blood Pressure Source [Right Arm] Blood Pressure Position Sitting Blood Pressure Position [Right Arm] 02 Sat by Pulse Oximetry Oxygen Delivery Method Room Air Lab Data Lab Results 08/07/23 23:00: WBC 10.9 H, RBC 4.46, Hgb 14.0, Hct 42.2, MCV 94.6, MCH 31.3 H, MCHC 33.1, RDW 13.7, Plt Count 318, MPV 7.6, Neut % (Auto) 69.2, Lymph % (Auto) 24.7, Luce % (Auto) 4.1, Eos % (Auto) 1.6, Baso % (Auto) 0.4, Neut # (Auto) 7.6, Lymph # (Auto) 2.7, Luce # (Auto) 0.5, Eos # (Auto) 0.2, Baso # (Auto) 0.1, Sodium 142, Potassium 3.7, Chloride 109 H, Carbon Dioxide 30, Anion Gap 6.7, BUN 17, Creatinine 0.70, Estimated Creat Clear 50, Estimated GFR 84, Est GFR ( Amer) 101, Glucose 108 H, Calcium 9.2, Magnesium 2.1, Total Bilirubin 0.3, AST 33, ALT 21, Alkaline Phosphatase 70, Total Protein 7.0, Albumin 4.0, Globulin 3.0, Albumin/Globulin Ratio 1.3 Orders (Tests/Meds): ORDERS Category Date Time Status Shoulder XR left minimum 2 views [XR shoulder LT min 2V Exams 08/07/23 22:53 Completed ] Stat Shoulder XR right miminum 2 views [XR shoulder RT min Exams 08/07/23 22:53 Completed 2V] Stat CBC w/Auto Diff [Complete Blood Count Auto Diff] Stat Lab 08/07/23 23:00 Completed CMP [Comprehensive Metabolic Panel] Stat Lab 08/07/23 23:00 Completed MG [Magnesium] Stat Lab 08/07/23 23:00 Completed Medical Decision Narrative: In summary patient is a 68-year-old female with past medical history described below presents emergency department for evaluation of traumatic injury sustained in a fall in the setting of chronic progressive MS. Patient is hemodynamically stable nontoxic-appearing upon arrival, afebrile. Patient has preserved range of motion with pain in her shoulders. Differential includes fracture, musculoskeletal strain, among others. With respect to trauma standpoint workup will be conducted with plain films. CT imaging of the head and neck was considered however given no reported trauma and no findings on physical exam will be deferred. Patient hematologic labs will be obtained for her chronic weakness which I suspect is her chronic progressive MS, she does report a history of vitamin D deficiency and wishes to have that lab sent off however that is unable to be conducted in the emergency department she will be referred to Dr. Velazquez to establish care from that standpoint. Plain films and repeat evaluation as well as capability to self transfer was pending at time of transfer of care to the oncoming physician, Dr. Mcgraw. Lucien ADRIAN: I assumed care of the patient at the time of handoff from the prior provider. On reassessment patient reports symptomatic improvement. Laboratory studies returned by me, no evidence of electrolyte abnormality to explain patient's weakness. Radiographs were interpreted by me, showed no evidence of acute fracture or dislocation. Does show a left apical lung mass. Patient reports she thinks she has been told about that in the past, but it was not adequately followed up on. Patient understands that she needs to have this assessed by her PCP with a nonemergent CT scan on an outpatient basis. Patient was able to transfer to and from her wheelchair and to and from the bathroom. Patient was discharged in stable condition. Return precautions given. Critical Care <Augustine Pulido MD - Last Filed: 08/07/23 23:01> Critical Care Time Critical Care Time: No
[2023-08-07 23:00] VITALS: BP 198/114; PULSE 87; RESP 18; O2SAT 96
[2023-08-07 23:12] LABS: Basophils # 0.1 K/mm3 (0-0.2); Basophils % 0.4 % (0.1-2.0); Eosinophils # 0.2 K/mm3 (0.0-0.4); Eosinophils % 1.6 % (0.1-12.0); Hematocrit 42.2 % (37.0-47.0); Lymphocytes # 2.7 K/mm3 (0.7-4.5); Lymphocytes % 24.7 % (10-50); Mean Corpuscular HGB Conc 33.1 g/dL (31.8-35.4); Mean Corpuscular Hemoglobin 31.3 pg (27.0-31.2); Mean Corpuscular Volume 94.6 fl (81-99); Mean Platelet Volume 7.6 fl (7.4-10.4); Monocytes # 0.5 K/mm3 (0.1-1.0); Monocytes % 4.1 % (1.7-9.3); Neutrophils # 7.6 K/mm3 (1.8-7.8); Neutrophils % 69.2 % (37.0-80.0); Platelet Count 318 K/mm3 (142-424); Red Blood Count 4.46 M/mm3 (4.20-5.40); Red Cell Distribution Width 13.7 % (11.5-17.5); White Blood Count 10.9 K/mm3 (4.8-10.8)
[2023-08-07 23:19] LABS: Chloride 109 mmol/L (98-107); Potassium 3.7 mmoL/L (3.5-5.1); Sodium 142 mmol/L (136-145)
[2023-08-07 23:21] LABS: Blood Urea Nitrogen 17 mg/dl (7-17); Creatinine Clearance Estimated 50 mL/min (50-200); Estimated Glomerular Filt Rate 84 ml/min (>60); GFR (African American) 101 ML/MIN (>60)
[2023-08-07 23:22] LABS: Alanine Aminotransferase 21 U/L (12-78); Albumin/Globulin Ratio 1.3 (1.1-1.8); Alkaline Phosphatase 70 U/L (38-126); Anion Gap 6.7 mEq/L (5-15); Aspartate Amino Transferase 33 U/L (14-36); Bilirubin,Total 0.3 mg/dl (0.2-1.3); Calcium 9.2 mg/dl (8.4-10.2); Carbon Dioxide 30 mmol/L (22.0-30.0); Glucose 108 mg/dl (74-100); Magnesium 2.1 mg/dl (1.6-2.3)
[2023-08-07 23:30] VITALS: BP 219/103; PULSE 82; RESP 20; O2SAT 95
--- NOTE | 2023-08-07 23:45 | PC.NURSE ---
Dr wanted pt to transfer from bed to wheelchair before discharging her home. Hospital wheelchair taken to bedside, pt stated she could not use that wheelchair that she needed her one from home. Pt came via EMS, and stated she lived alone. I asked if there was anyone to bring it here and informed me her daughter was in lobby with it. Francesca went to lobby to see since no one had called back and informed us she had family waiting. The daughter was very upset that she had told front desk administrator she was here and had to sit in lobby uninformed of her mother's care. I explained I was unaware of her presence, pt nor front end software developer staff advised me. Pt was porvided her own wheelchair at bedside where she transferred herself from stretcher to her chair and informed us not to touch her. She stated she needed to use the restroom, wheeled herself in and she stated obviously we didn't know how to place rails for disabled people because they were in the wrong spots. I offered to assist her and she declined. Pt transferred herself to toilet and back to her chair. Daughter outside of restroom, pt was ready to go home from there. Dr mcgraw spoke with pt outside restroom and discharge was signed with no further questions. Follow up with Dr Velazquez and directions given.
--- NOTE | 2023-08-08 | PC.NURSE ---
INFORMED COMMUNICATIONS OFFICER,DOTTIE, THAT PATIENT IS DISSATISFIED WITH HER FAMILY MEMBERS NOT BEING ALLOWED BACK IN THE ROOM WHILE THE DR AND NURSES WERE IN THERE DUE TO SPACE CONSTRAINTS. PATIENT CONTINUES ON TO STATE THAT THE HOSPITAL MUST'VE NEVER BEEN SET UP FOR A HANDICAP PERSON . PATIENT IS SITTING IN WC IN [facility] BESIDE NURSES STATION DISCUSSING HER CARE AT HER DECISION.
[2023-08-08 00:05] VITALS: BP 198/103; PULSE 82; RESP 20; TEMP 36.8; O2SAT 96
== END 2023-08-08 | disposition home or self-care (01) ==
PROVIDERS: Emergency Provider Emergency Medicine; PCP Internal Medicine
DX: M25.511 Pain in right shoulder (principal); M25.512 Pain in left shoulder; R91.8 Other nonspecific abnormal finding of lung field; M62.81 Muscle weakness (generalized); G35 Multiple sclerosis; F17.210 Nicotine dependence, cigarettes, uncomplicated; W19.XXXA Unspecified fall, initial encounter
CPT/HCPCS: 73030; 80053; 83735; 85025; 99284

== ENCOUNTER 2023-08-09 20:08 | Outpatient (CLI) | payer MEDICARE, OTHER, SELFPAY ==
[2023-08-09 18:02] LABS: 25-OH Vitamin D, Total 39.9 ng/mL (30-100)
[2023-08-09 18:51] LABS: Vitamin B12 599 pg/mL (239-931)
[2023-08-10 12:13] LABS: HCV Ab Non Reactive (Non Reactive); HIV Screen 4th Generation wRfx Non Reactive (Non Reactive)
== END 2023-08-09 23:59 ==
PROVIDERS: PCP Internal Medicine; Visit Provider Internal Medicine
DX: E55.9 Vitamin D deficiency, unspecified (principal); Z13.21 Encounter for screening for nutritional disorder; Z11.59 Encounter for screening for other viral diseases; Z91.89 Other specified personal risk factors, not elsewhere classified; R53.1 Weakness; Z11.4 Encounter for screening for human immunodeficiency virus [HIV]; G35 Multiple sclerosis
CPT/HCPCS: 82306; 82607; 82746; 86703; G0432

== ENCOUNTER 2023-09-22 15:00 | Outpatient (RCR) | payer MEDICARE, OTHER, SELFPAY ==
--- NOTE | 2023-09-01 15:39 | HMH.OTOPEV ---
OT Inpatient Evaluation Rehab OT Outpatient Eval Start: 09/01/23 15:28 Freq: Status: Active Protocol: Document 09/01/23 15:29 JONESCIPRIANO (Rec: 09/01/23 15:38 GENARO [id number]) E-signed By Emily Berry, OT Outpatient Therapy Subjective History Subjective History 68 year old female referred to skilled OP OT services for bilateral shoulder pains. Patient stated to have B shld pain for the past 4-5 weeks. Patient is w/c bound with PMH of MS (1990) along with hx of falling. Patient's most recently fall was yesterday. Lives alone with daughter near by. New diagnosis of cancer in past 12 No months? Chief Complaint Pain,Weakness Symptom Type Ache,Throb,Sharp,Dull,Stabbing ,Burning,Shooting Symptoms Relieved By Nothing Symptoms Aggravated By Physical Activity Prior Functional Limitations None Current Functional Limitations Reaching,Lifting,Recreation Activity Symptom Description Intermittent Level of pain today (0-10) 0 Pain scale - at its best (0-10) 0 Pain scale - at its worst (0-10) 8 Shoulder/Elbow Eval Shoulder Objective Measurements Shoulder ROM Right Shoulder Abduction Active Range of 90 Motion (degrees) Shoulder Flexion Active Range of Motion 130 (degrees) Query Text: Shoulder External Rotation Active Range 30 of Motion (degrees) Shoulder Internal Rotation Active Range 60 of Motion (degrees) pain with active ROM shoulder exam right standard Left Shoulder Abduction Active Range of 90 Motion (degrees) Shoulder Flexion Active Range of Motion 130 (degrees) Query Text: Shoulder External Rotation Active Range 30 of Motion (degrees) Shoulder Internal Rotation Active Range 60 of Motion (degrees) pain with active ROM shoulder exam left standard Shoulder MMT Bilateral Rhomboids Strength Grade 3- Fair- Shoulder Abduction Strength Grade 3- Fair- Shoulder Extension Strength Grade 3- Fair- Shoulder Flexion Strength Grade 3- Fair- Shoulder Horizontal Abduction Strength 3- Fair- Grade Shoulder Horizontal Adduction Strength 3- Fair- Grade Infraspinatus/Teres Minor Strength Grade 3- Fair- Shoulder External Rotation Strength 3- Fair- Grade Shoulder Internal Rotation Strength 3- Fair- Grade Elbow Objective Measurements QuickDASH Activities Please rate your ability to do the following activities in the last week by selecting the number below the appropriate response. 1. Open a tight or new jar. Moderate difficulty 2. Do heavy treer (e.g., wash Moderate difficulty da silva, floors). 3. Carry a shopping bag or briefcase. Mild difficulty 4. Wash your back. Unable 5. Use a knife to cut food. Moderate difficulty 6. Recreational activities in which you Moderate difficulty take some force or impact through your arm, shoulder, or hand (e.g., golf, hammering, tennis, etc.). 7. During the past week, to what extent Quite a bit has your arm, shoulder or hand problem interfered with your normal social activities with family, friends, neighbors or groups? 8. During the past week, were you Very limited limited in your work or other regular daily activites as a result of your arm, shoulder or hand problem? 9. Arm, shoulder or hand pain. Severe 10. Tingling (pins and needles) in your None arm, shoulder or hand. 11. During the past week, how much Mild difficulty difficulty have you had sleeping because of the pain in your arm, shoulder or hand? Quick DASH 34 OT Outpatient Assessment Impairments Problems/Impairments Impaired Range of Motion, Impaired Strength,Impaired Lifting,Subjective C/O Pain Prognosis Rehab Potential Good Clinical Impression Consistent with Diagnosis Yes Short Term Goals Number of Weeks 2 Increase Range of Motion Yes: Improve AROM of R UE shld flex: 140; abd: 120; er: 40; Increase Strength Yes: Improve R shld strength 3 to 3+/5 Decrease Subjective C/O Pain Yes: 6/10 pain at worst Patient to be Ind w/ HEP Yes: AAROM Patient to be Ind w/ Advanced HEP Yes: Strengthening Improve Quick Dash Score Yes: 30 Associate Automation Engineer Goals Number of Weeks 4 Increase Range of Motion Yes: Improve AROM of R UE shld flex: 150; abd: 140; er: 60; Increase Strength Yes: Improve R shld strength 3 +/5 Decrease Subjective C/O Pain Yes: 4/10 pain at worst Patient to be Ind w/ HEP Yes: AROM Patient to be Ind w/ Advanced HEP Yes: Strengthening Improve Quick Dash Score Yes: 20 Outpatient Therapy Plan of Care Treatment Plan May Include Therapeutic Exercise Including Home Yes Exercise Program Manual Therapy Techniques Yes Therapeutic Activities to Return to Yes Previous Functional/Work Level Thermal Modalities Yes Electrical Stimulation Yes Ultrasound/Phonophoresis Yes Iontophoresis Yes Eval/Re-Eval Yes Aquatic Therapy Yes Frequency Times per week 1x/wk Duration Number of Weeks 4 weeks Addendums This patient is a candidate for social No or vocational rehab? Patient/Guardian verbally acknowledges Yes understanding of treatment program and consents to further treatment? Patient/Guardian verbally acknowledges Yes understanding of diagnosis, prognosis and goals for treatment? Eval Complexity OT Charge 02603 - Low Complexity PHYSICIAN CERTIFICATION: I certify the specified therapy services for Hailey Huynhi are required, authorized, and reviewed every 30 days.
== END 2023-09-22 15:05 | disposition home or self-care (01) ==
LOC: OT 15:00
PROVIDERS: Visit Provider Internal Medicine
DX: M25.511 Pain in right shoulder (principal); M25.512 Pain in left shoulder; G35 Multiple sclerosis
CPT/HCPCS: 97010; 97014; 97035; 97110; 97140; 97165; 97530; G0283

== ENCOUNTER 2024-02-09 12:11 | Emergency (ER) | payer MEDICARE, OTHER, SELFPAY ==
[2024-02-09 12:11] VITALS: BP 158/86; PULSE 88; RESP 19; TEMP 36.7; O2SAT 99; BMI 22.1
--- NOTE | 2024-02-09 12:15 | CT_ITS ---
FINAL REPORT TECHNIQUE: Axial imaging of the lumbar spine was obtained without contrast. Sagittal and coronal reformatted images were also obtained and reviewed. This study was performed with techniques to keep radiation doses as low as reasonably achievable (ALARA). Individualized dose reduction techniques using automated exposure control or adjustment of mA and/or kV according to the patient's size were employed. CLINICAL HISTORY: fall, T/L/S spine pain COMPARISON: None FINDINGS: There is no fracture. There is severe scoliosis present. Mild degenerative changes present. There is mild anterolisthesis of L5 on S1.There is no evidence of significant central canal stenosis. Incidental note is made of a right L5 pars defect. Several hepatic cysts are noted in the liver. There is a 4 mm sclerotic focus in the left iliac wing, as well as a 6 mm sclerotic focus in the right iliac bone. These may represent bone islands although sclerotic metastasis cannot be excluded. A small diverticulum in the right side of the bladder is present. IMPRESSION: Severe scoliosis is present, without evidence of central canal stenosis. No acute bony abnormality is identified. 2 sclerotic foci noted in the iliac wings as described above, that may represent bone islands although a sclerotic metastasis cannot be excluded. Reviewed, Interpreted and Dictated by William Figueroa III, MD Transcribed by Stephanie Huffman Authenticated and [facility]
--- NOTE | 2024-02-09 12:15 | CT_ITS ---
FINAL REPORT CLINICAL HISTORY: fall, T/L/S spine pain COMPARISON: None FINDINGS: Axial CT images of the thoracic spine were obtained without contrast. Sagittal and coronal reformatted images were also obtained. This study was performed with techniques to keep radiation doses as low as reasonably achievable (ALARA). Individualized dose reduction techniques using automated exposure control or adjustment of mA and/or kV according to the patient's size were employed. There is no evidence of fracture. There is a marked dextroscoliosis of the thoracic spine. Mild degenerative changes are present. There are mild changes of emphysema in the lung gamez. There is a spiculated nodule in the left upper lobe, measuring 26 mm in size, worrisome for underlying neoplasm. Incidental note is made of an aberrant right subclavian artery. There is no evidence of significant canal stenosis. No paraspinous soft tissue abnormality is otherwise identified. IMPRESSION: No fracture or acute bony abnormality. No significant central canal stenosis. Severe dextroscoliosis. Spiculated nodule in the left upper lobe 26 mm in size, worrisome for neoplasm. PET/CT is suggested for further evaluation. These results were communicated to Dr. Morton in the emergency room at [facility] 02/09/2024 at 2:05 PM. Reviewed, Interpreted and Dictated by William Figueroa III, MD Transcribed by Stephanie Huffman Authenticated and . [facility]
--- NOTE | 2024-02-09 12:15 | CT_ITS ---
FINAL REPORT TECHNIQUE: Axial images through the pelvis were performed by computed tomography. This study was performed with techniques to keep radiation doses as low as reasonably achievable, (ALARA). Individualized dose reduction techniques using automated exposure control or adjustment of mA and/or kV according to the patient's size were employed. CLINICAL HISTORY: fall, T/L/S spine pain COMPARISON: None FINDINGS: CT PELVIS WITHOUT CONTRAST: The pelvis is markedly rotated secondary to the patient's scoliosis. 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 Mild degenerative changes present in the hips. Degenerative changes also present in the right sacroiliac joint. There is a 4 mm sclerotic focus in the left iliac wing, and a 6 mm sclerotic focus in the right iliac bone. These may represent bone islands although sclerotic metastases are not excluded. 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 Sclerotic foci in the iliac wings, as described above, bone islands versus sclerotic metastases. Reviewed, Interpreted and Dictated by William Figueroa III, MD Transcribed by Stephanie Huffman Authenticated and [facility]
[2024-02-09 12:30] VITALS: BP 156/80; PULSE 81; O2SAT 96
--- NOTE | 2024-02-09 12:39 | ED_ITS ---
Discharge Plan Disposition Patient Disposition: Home, Self-Care Chief Complaint: PAIN Prescriptions Prescriptions: No Action nystatin 100,000 unit/gram cream 1 applic topical QID 14 Days Qty: 30 1RF Referrals Follow up/Referrals: Jt Mckenzie DO [Primary Care Provider] - See instructions Activity Restrictions/Add. Instructions Additional Instructions/Restrictions: Follow-up with your family doctor regarding this visit to the emergency department. Also follow-up regarding need for imaging and potential PET scan for the nodule in your left lung. Call your family doctor to establish care for this visit to the emergency department and schedule follow-up within 48 hours to ensure improvement. If you have any worsening of your condition or any other concerning signs or symptoms, return to the emergency department or your primary care doctor for further evaluation. Clinical Impressions Clinical Impression: Lumbar spine pain, Mass of left lung Print Language Print Language: Zambian Discharge ED Provider: Ever Morton General Adult HPI General Chief complaint: PAIN Stated complaint: fall Time Seen by Provider: 02/09/24 12:15 Mode of Arrival: EMS Source of Information: Patient Limitations: No Limitations Description of Symptoms (Recalled from ER Triage Doc. by RN): pt presents to ED via [facility]s with c/o fall two days ago. pt reports pain in lower back. bilateral hip/leg pain. no LOC, no blood thinners noted. History of Present Illness HPI narrative: Please note that above description of symptoms, in this electronic medical record under categorization of recalled from ER triage doctor by RN are reflective of an initial nursing assessment, however, is not reflective of my full history and physical exam that was personally taken and clarified. Consequentially, this preceding description of symptoms, which may include the patient's categorized chief complaint in the EMR, do not reflect my personal clinical impression, and the ultimate description of history of present illness and patient stated complaints should be deferred to this section of the note. Unless stated otherwise or congruent with this section of the note, additional signs, symptoms, or incongruence should be interpreted as inaccurate with my clinical impression. Related Data Previous Rx's ?Medication ?Instructions ?Recorded nystatin 100,000 unit/gram topical 1 applic topical QID 14 days #30 11/06/23 cream grams Allergies Allergy/AdvReac Type Severity Reaction Status Date / Time codeine [CODEINE] Allergy Mild Verified 10/24/23 14:08 hydrochlorothiazide Allergy Mild Verified 10/24/23 14:08 losartan Allergy Mild Verified 10/24/23 14:08 Penicillins [PENICILLINS] Allergy Mild Verified 10/24/23 14:08 rosuvastatin [From Crestor] Allergy Mild Verified 10/24/23 14:08 PFSH [facility] Disclaimer: The information contained in this section may have been updated after the patient was seen, as this information can be updated by other users. Medical History Fatigue Under evaluation by PCP to rule out secondary etiology. 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, secondary progressive MS Tobacco user Carotid artery stenosis Abnormal cardiovascular stress test Dyspnea Atypical angina Surgical History History of lumpectomy Hx of lithotripsy History of cholecystectomy History of hysterectomy Social History Smoking Status: Current every day smoker tobacco type: cigarettes packs per day: 1 second hand exposure: No alcohol intake: never counseling provided: none substance use type: denies use current occupational status: disabled Travel in the last 8 weeks: None household members: spouse housing: house current occupational exposures/hazards: No caffeine: Yes ROS Obtained: Yes All systems reviewed & no additional complaints except as documented Physical Exam General General appearance: alert Head Head exam: atraumatic and normocephalic Eye Eye exam: Present normal appearance, PERRL and EOMI ENT ENT exam: Present mucous membranes dry Neck Neck exam: Present normal inspection, full ROM and trachea midline Respiratory Respiratory exam: Present normal lung sounds bilaterally; Absent respiratory distress, wheezes, stridor, accessory muscle use or prolonged expiratory phase Cardiovascular Cardiovascular exam: Present regular rate, normal rhythm and other (Pulses equal symmetric in upper and lower extremities) Abdominal Exam Abdominal exam: Present soft; Absent distention, tenderness or pulsatile mass Extremities Exam Extremities exam: Present other (Mild contractures right lower extremity with mild flexion of hip, flexion of knee); Absent tenderness or edema Back Exam Back exam: Present vertebral tenderness (Thoracolumbar spine); Absent CVA tenderness (R) or CVA tenderness (L) Neurological Exam Neurological exam: Present alert, oriented X3 and CN II-XII intact; Absent motor sensory deficit Skin Skin exam: Present warm and dry; Absent diaphoresis or erythema Medical Decision Making Medical Records Medical records reviewed: Yes I reviewed the patient's medical records. Yann Inquiry Pt receiving controlled substance: No Yann was queried for this patient: No Vital Signs: 02/09/24 12:11 02/09/24 12:30 02/09/24 13:09 Temperature 98.0 F Temperature Source Oral Pulse Rate 81 88 Pulse Rate [Left Radial] 88 Respiratory Rate 19 Blood Pressure 156/80 H 166/85 H Blood Pressure [Right Arm] 158/86 H Blood Pressure Mean [Right Arm] 110 02 Sat by Pulse Oximetry 99 96 98 Oxygen Delivery Method Room Air 02/09/24 13:30 Temperature Temperature Source Pulse Rate 79 Pulse Rate [Left Radial] Respiratory Rate Blood Pressure 143/83 H Blood Pressure [Right Arm] Blood Pressure Mean [Right Arm] 02 Sat by Pulse Oximetry 98 Oxygen Delivery Method Orders (Tests/Meds): ED MEDICATIONS Discontinued Medications Generic Name Dose Route Start Last Admin Trade Name Freq PRN Reason Stop Dose Admin Acetaminophen 1,000 mg 02/09/24 12:15 02/09/24 12:43 Acetaminophen 500mg Tab PO 02/09/24 12:16 Not Given ONCE ONE Lactated Ringer's 1,000 mls @ 999 mls/hr 02/09/24 12:39 02/09/24 13:05 Lactated Ringer's 1000 Ml Bag IV 02/09/24 13:39 999 mls/hr .Q1H1M ONE Administration Ketorolac Tromethamine 15 mg 02/09/24 12:15 02/09/24 12:43 Ketorolac 30mg/Ml Vial IM 02/09/24 12:16 Not Given ONCE ONE Prednisone 40 mg 02/09/24 12:15 02/09/24 12:43 Prednisone 20mg Tab PO 02/09/24 12:16 Not Given ONCE ONE ORDERS Category Date Time Status CT bony pelvis Stat Cat Scan 02/09/24 12:[address] lumbar spine wo con Stat Cat Scan 02/09/24 12:[address] thoracic spine wo con Stat Cat Scan 02/09/24 12:15 Taken Medical Decision Narrative: 68-year-old female with 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 Patient states that she was on the toilet earlier this week when she slid off to the right side, landed on a clothing rack. Took her about 2 hours to stand up, but when she got up, she felt okay and that she would manage at home. Has not taken any medications for the pain. States that today, she continued up to pain, so called EMS to bring her to the emergency depar tment. Denies bladder or bowel incontinence, hip pain, head injury, neck injury, or any other concerns. She does state that she does not eat or drink much because she does not want to get up and go to the bathroom, so she may be, requesting fluids. History was obtained via conversation with patient. On arrival, patient hemodynamically stable, alert, oriented x4, appropriate, GCS 15, moving all extremities spontaneously, pupils equal and reactive to light. Full physical exam performed and significant for well-appearing female no acute distress. Disgruntled. Neurologically at her baseline. She does have thoracolumbar spine tenderness in the midline without outward signs of injury or deformity. No paraspinal tenderness. Range of motion of hip normal, mild flexion contracture of right knee. Pulses equal and symmetric in lower extremities. Differential includes sprain, strain, radiculopathy, fracture, among others. Patient was given acetaminophen, Toradol, prednisone for symptomatic management and correction of underlying abnormalities. Workup independently interpreted and significant for. On independent interpretation of imaging, no acute bony abnormality or fracture of the spine or pelvis. See radiology read for full review of final results. Patient does have large spiculated nodule in left upper lobe with associated lymphadenopathy on the left side concerning for malignancy. This was relayed to patient. Because patient at baseline without signs or symptoms of clinical decompensation, deemed appropriate for discharge. Results were relayed to patient who voiced understanding and were agreeable to outpatient management and follow up. I discussed my clinical impression with patient and answered all questions. At this time, the evidence for any other entities in the differential is insufficient to warrant any further testing or ED observation. This was explained as well. Advisory was given that persistent or worsening symptoms require further evaluation. I confirmed the understanding of this discussion. [employer] Operator Chief disclaimer Much of this encounter note is an electronic sign language interpreter spoken language to printed text. Electronic sign language interpreter of the spoken language may permit errors. Although I have reviewed the note, some errors may still exist. Critical Care Critical Care Time Critical Care Time: No
[2024-02-09] MEDS: LACTATED RINGERS 1000ML 1,000 ML 999 ML IV (13:05)
[2024-02-09 13:09] VITALS: BP 166/85; PULSE 88; O2SAT 98
[2024-02-09 13:30] VITALS: BP 143/83; PULSE 79; O2SAT 98
[2024-02-09 14:20] VITALS: BP 158/80; PULSE 60; RESP 20; TEMP 36.7; O2SAT 98
== END 2024-02-09 14:41 | disposition home or self-care (01) ==
PROVIDERS: Emergency Provider Emergency Medicine; PCP Internal Medicine
DX: M54.50 Low back pain, unspecified (principal); M25.551 Pain in right hip; M25.552 Pain in left hip; G35 Multiple sclerosis; R91.8 Other nonspecific abnormal finding of lung field; F17.210 Nicotine dependence, cigarettes, uncomplicated; W18.12XA Fall from or off toilet with subsequent striking against object, initial encounter; R59.0 Localized enlarged lymph nodes
CPT/HCPCS: 72128; 72131; 72192; 96360; 99285; J7120

== ENCOUNTER 2024-02-22 08:03 | Outpatient (CLI) | payer MEDICARE, OTHER, SELFPAY ==
[2024-02-22 17:23] LABS: Basophils # 0.1 K/mm3 (0-0.2); Basophils % 0.9 % (0.1-2.0); Eosinophils # 0.1 K/mm3 (0.0-0.4); Eosinophils % 0.6 % (0.1-12.0); Hematocrit 44.4 % (37.0-47.0); Hemoglobin 13.8 g/dL (12.2-16.2); Lymphocytes # 2.2 K/mm3 (0.7-4.5); Lymphocytes % 22.3 % (10-50); Mean Corpuscular Hemoglobin 30.9 pg (27.0-31.2); Mean Corpuscular Volume 99.6 fl (81-99); Mean Platelet Volume 8.5 fl (7.4-10.4); Monocytes # 0.4 K/mm3 (0.1-1.0); Monocytes % 4.4 % (1.7-9.3); Neutrophils % 71.8 % (37.0-80.0); Platelet Count 404 K/mm3 (142-424); Red Blood Count 4.45 M/mm3 (4.20-5.40); Red Cell Distribution Width 13.9 % (11.5-17.5); White Blood Count 9.7 K/mm3 (4.8-10.8)
[2024-02-22 17:50] LABS: Alanine Aminotransferase 19 U/L (12-78); Albumin Level 3.8 g/dl (3.5-5.0); Albumin/Globulin Ratio 1.4 (1.1-1.8); Alkaline Phosphatase 69 U/L (38-126); Anion Gap 7.7 mEq/L (5-15); Aspartate Amino Transferase 28 U/L (14-36); Bilirubin,Total 0.4 mg/dl (0.2-1.3); Blood Urea Nitrogen 17 mg/dl (7-17); Calcium 9.7 mg/dl (8.4-10.2); Carbon Dioxide 28 mmol/L (22.0-30.0); Chloride 109 mmol/L (98-107); Chol/HDL Ratio 2.9 (1-3.5); Cholesterol 254 mg/dl (140-200); Estimated Glomerular Filt Rate 100 ml/min (>60); GFR (African American) 121 ML/MIN (>60); Globulin 2.8 g/dL (1.3-3.2); Glucose 90 mg/dl (74-100); HDL Cholesterol 89 mg/dl (40-60); Potassium 3.7 mmoL/L (3.5-5.1); Sodium 141 mmol/L (136-145); Total Protein,Serum 6.6 g/dl (6.3-8.2); Triglycerides 128 mg/dl (30-150); VLDL Cholesterol 26 mg/dL (0-40)
[2024-02-22 18:01] LABS: Direct LDL Cholesterol 125.82 mg/dL (100-129)
[2024-02-22 18:12] LABS: Free T4 (Free Thyroxine) 1.34 ng/dl (0.78-2.19)
[2024-02-22 18:13] LABS: Hemoglobin A1C 5.5 % (4.0-6.0)
[2024-02-22 18:24] LABS: Thyroid Stimulating Hormone 1.27 uIU/mL (0.465-4.68)
[2024-02-22 18:43] LABS: Vitamin B12 575 pg/mL (239-931)
[2024-02-22 19:58] LABS: Iron 71 ug/dL (37-170)
[2024-02-22 19:59] LABS: Ferritin 32.4 ng/ml (11.1-264); Total Iron Binding Capacity 318 ug/dL (265-497)
[2024-02-24 12:47] LABS: Rapid Plasma Reagin Ab Titer Non Reactive titer (NonRea<1:1)
== END 2024-02-22 23:59 | disposition home or self-care (01) ==
LOC: LAB.DROPOF 02-23 09:58
PROVIDERS: PCP Nurse Practitioner Family; Visit Provider Nurse Practitioner Family
DX: D64.9 Anemia, unspecified (principal); R53.1 Weakness; E55.9 Vitamin D deficiency, unspecified; G35 Multiple sclerosis; W19.XXXA Unspecified fall, initial encounter; I10 Essential (primary) hypertension; Z13.1 Encounter for screening for diabetes mellitus
CPT/HCPCS: 80053; 80061; 82306; 82607; 82728; 83036; 83540; 83550; 84439; 84443; 85025; 86593

== ENCOUNTER 2024-02-29 22:29 | Outpatient (CLI) | payer MEDICARE, OTHER, SELFPAY ==
[2024-02-29 22:35] LABS: Microscopic, Urine URINE MICROSCOPIC (MICROSCOPIC)
[2024-02-29 22:54] LABS: Appearance,Urine CLEAR (Clear); Bilirubin,Urine Negative (Negative); Blood, Urine TRACE-I (Negative); Color,Urine YELLOW (Yellow); Glucose,Urine (UA) Negative (Negative); Ketones,Urine Negative (Negative); Leukocyte Esterase,Urine Negative (Negative); Nitrate,Urine Negative (Negative); Protein,Urine Negative (Negative); Specific Gravity, Urine 1.025 (1.005-1.030); Urobilinogen,Urine 0.2 EU/dl (0.2)
[2024-02-29 23:14] LABS: Bacteria,Urine 1+ /lpf; Mucus,Urine 2+ /lpf
== END 2024-02-29 23:59 | disposition home or self-care (01) ==
LOC: LAB.DROPOF 22:29
PROVIDERS: PCP Nurse Practitioner Family; Visit Provider Nurse Practitioner Family
DX: I10 Essential (primary) hypertension (principal); Z13.1 Encounter for screening for diabetes mellitus; R53.83 Other fatigue; R53.1 Weakness; G35 Multiple sclerosis; F17.210 Nicotine dependence, cigarettes, uncomplicated
CPT/HCPCS: 81001; 84156; 87086

== ENCOUNTER 2024-03-12 10:30 | Outpatient (CLI) | payer MEDICARE, OTHER, SELFPAY ==
[2024-03-12 16:47] LABS: Microscopic, Urine URINE MICROSCOPIC (MICROSCOPIC)
[2024-03-12 17:30] LABS: Appearance,Urine CLEAR (Clear); Bilirubin,Urine Negative (Negative); Blood, Urine TRACE-I (Negative); Color,Urine YELLOW (Yellow); Glucose,Urine (UA) Negative (Negative); Ketones,Urine Negative (Negative); Leukocyte Esterase,Urine Negative (Negative); Nitrate,Urine Negative (Negative); Protein,Urine Negative (Negative); Specific Gravity, Urine 1.025 (1.005-1.030); Urobilinogen,Urine 0.2 EU/dl (0.2)
[2024-03-12 17:43] LABS: RBC,Urine 20-50 #/hpf (0-3); Squamous Epithelial Cell,Urine 20-50 #/hpf (0-5)
[2024-03-12 17:44] LABS: Bacteria,Urine 3+ /lpf; Calcium Oxalate Crystals,Urine 2+ /lpf; Mucus,Urine 2+ /lpf
== END 2024-03-12 23:59 | disposition home or self-care (01) ==
LOC: LAB.DROPOF 03-13 12:40
PROVIDERS: PCP Nurse Practitioner Family; Visit Provider Nurse Practitioner Family
DX: R53.83 Other fatigue (principal); Z13.1 Encounter for screening for diabetes mellitus
CPT/HCPCS: 81001; 87086; 87088; 87186